=== PATIENT | female | born 1950 | race Caucasian/White ===

== ENCOUNTER → 2017-01-16 | Outpatient (CLI) | payer OTHER | LOC: MMPC 11:11 | PROVIDERS: ATTEND Surgery | DX: K21.9 Gastro-esophageal reflux disease without esophagitis (principal); R19.7 Diarrhea, unspecified | CPT/HCPCS: 99203; G0463 ==

== ENCOUNTER 2017-02-12 08:15 | Day surgery (SDC) | payer OTHER ==
[~2017-02-12 08:15] MED LIST: LIDOCAINE 2% VISCOUS(20 MG/1 ML) - 15 ML UD CUP PO ONE; LIDOCAINE W/ SODIUM BICARB 0.5 ML SYR ONE; Lactated Ringers 1,000 ML PRIMARY IV ONE; fentaNYL Inj 100 MCG/2 ML VIAL ONE
--- NOTE | 2017-02-12 09:39 | GEN.OPNOTE ---
EGD / Colonoscopy Report Surgery Date: 02/12/17 Preoperative Diagnosis: Chronic GERD. Colon cancer screening. Intermittent diarrhea. Postoperative Diagnosis: Same. Small rectal polyp. Scattered diverticulosis. Procedure: #1 esophagogastroduodenoscopy with biopsy. #2 complete colonoscopy with multiple random biopsies as well as biopsy and destruction of a small rectal polyp. Surgeon: Avinash Carrillo MD Anesthesia Provider: Star Maldonado CRNA Anesthesia Type: MAC Indications: See preoperative diagnosis. EGD Findings: Esophagus: [Normal] GE Junction : [Slightly irregular but otherwise normal] Fundus : [Normal] Body : [Normal] Prepyloric : [Normal] Small Intestine : [Erythema of the duodenal mucosa.] A lubricated flexible upper endoscope was inserted and passed through the esophagus and stomach into the duodenum. Duodenum showed signs of duodenitis. Biopsies were taken. Hemostasis was assured. The scope was withdrawn into the stomach. Patient is on a chronic H2 tracey. Antral biopsies were taken. Hemostasis was assured. The scope was retroflexed. The upper body and fundus of the stomach were unremarkable. The scope was straightened. Air was aspirated. The scope was withdrawn into the distal esophagus. Biopsies were taken at and above the Z line. Hemostasis was assured. The scope was withdrawn through the remainder of a normal-appearing esophagus and brought through the hypopharynx under suction completing that portion of the procedure. Colonoscopy Findings: Prep : [Fair] Cecum : [Normal] Ascending : [Normal] Transverse : [Normal] Sigmoid : [Normal with scattered diverticuli.] Rectum : [Small rectal polyp biopsied and destroyed.] Digital Rectal Exam : [No significant perianal pathology.] A lubricated flexible colonoscope was inserted and passed to the blind end of the cecum. The appendiceal orifice and ileocecal valve were clearly seen. The prep was somewhat marginal so a small polyp could've been missed. Nothing gross would've been missed. Random biopsies were taken from the right colon, transverse colon, sigmoid colon, and rectum. A small rectal polyp was biopsied and destroyed. There were scattered diverticuli otherwise the colonoscopy was normal without other polyps, tumors, neoplastic masses, infectious or inflammatory processes identified. The scope was withdrawn completing the procedure. Patient tolerated all aspects of the procedure well without complication. She was taken to outpatient surgery in stable condition. Follow-up will be with my office on a when necessary basis. We will call the biopsy results when available and plan therapy and follow-up accordingly.
[2017-02-12 10:21] VITALS: RESP 16
[2017-02-12 10:31] VITALS: TEMP 98.2
== END 2017-02-12 10:05 | disposition home or self-care (01) ==
LOC: SDSC 08:15
PROVIDERS: ATTEND Surgery
DX: K21.9 Gastro-esophageal reflux disease without esophagitis (principal); Z12.11 Encounter for screening for malignant neoplasm of colon; R19.7 Diarrhea, unspecified; K62.1 Rectal polyp; K57.90 Diverticulosis of intestine, part unspecified, without perforation or abscess without bleeding
CPT/HCPCS: 43239; 45380; J2704; J3010; J7120